=== PATIENT | female | born 1935 | race Caucasian/White ===

== ENCOUNTER 2018-07-05 18:37 | Inpatient (IN) | payer MEDICARE, MEDICAID ==
[~2018-07-05] VITALS: Ht 160 cm; Wt 93.9 kg
[~2018-07-05 18:37] MED LIST: ETOMIDATE 2MG/ML 10ML VIAL IV ONE; SUCCINYLCHOLINE CHLORIDE 200MG/10ML IV ONE
[2018-07-05] MEDS ORDERED: PROPOFOL 10MG/ML 100ML 100 ML IV ONE (18:59)
[2018-07-05] MEDS ORDERED: PROPOFOL 10MG/ML 100ML 100 ML IV SCH (19:00)
[2018-07-05] MEDS ORDERED: NICARDIPINE 40MG/200ML PREMIX 200 ML IV SCH (19:15)
[2018-07-05 19:32] LABS: BASOPHILS % 0.3 % (0.0-2.0); EOSINOPHILS % 0.2 % (0.0-5.0); HEMOGLOBIN. 12.8 g/dL (12.0-16.0); MEAN CORPUSCULAR HEMOGLOBIN 27.4 pg (28.0-32.0); MEAN CORPUSCULAR VOLUME 85.7 fL (81.0-99.0); MEAN PLATELET VOLUME 9.9 fl (7.4-10.4); MONOCYTES % 5.9 % (2.0-8.0); NEUTROPHILS % 67.6 % (40.0-76.0); PLATELET 262 x1000/uL (130-400); RED BLOOD CELL COUNT 4.66 mill/uL (4.2-5.4); RED CELL DISTRIBUTION WIDTH 15.9 % (11.6-14.6)
[2018-07-05 19:38] LABS: CHLORIDE 97 mEq/L (98-107); PROTHROMBIN TIME 10.4 sec (9.1-11.1)
[2018-07-05 19:45] LABS: ETHANOL BLOOD < 10 mg/dL
[2018-07-05] MEDS ORDERED: DEXAMETHASONE 10 MG/ML VIAL IV ONE (19:45)
[2018-07-05] MEDS ORDERED: NICARDIPINE 100 MG in SODIUM CHLORIDE 0.9% 60 ML IV PRN (19:45)
[2018-07-05] MEDS ORDERED: MANNITOL 12.5G (25%) VIAL 50ML IV ONE (19:45)
[2018-07-05] MEDS ORDERED: HUMAN PROTHROMBIN COMPLX (PCC) 500 UNITS VIAL IV NR (20:00)
[2018-07-05 20:17] LABS: CLARITY URINE CLEAR (CLEAR); COLOR URINE YELLOW (YELLOW); KETONES URINE 1+ (NEGATIVE); LEUKOCYTE ESTERASE URINE NEGATIVE (NEGATIVE); NITRITE URINE NEGATIVE (NEGATIVE); OCCULT BLOOD URINE 1+ (NEGATIVE); PROTEIN URINE 1+ (NEGATIVE); SPECIFIC GRAVITY URINE 1.031 (1.005-1.030); UROBILINOGEN URINE 0.2 E.U./dL (0.2-1.0)
[2018-07-05 20:47] LABS: *AMPHETAMINES SCREEN URINE NEGATIVE (NEGATIVE); *BARBITURATES SCREEN URINE NEGATIVE (NEGATIVE); *BENZODIAZEPINES SCREEN URINE NEGATIVE (NEGATIVE); *COCAINE SCREEN URINE NEGATIVE (NEGATIVE); CANNABINOID URINE SCREEN NEGATIVE (NEGATIVE); METHADONE URINE SCREEN NEGATIVE (NEGATIVE); OPIATES URINE SCREEN NEGATIVE (NEGATIVE); PHENCYCLIDINE URINE SCREEN NEGATIVE (NEGATIVE)
[2018-07-05] MEDS ORDERED: LEVETIRACETAM 500MG PREMIX 100 ML IV NR (21:01)
[2018-07-05] MEDS: DEXT 5%/LACTATED RINGERS 1,000 ML IV SCH ×2 (21:05→23:48)
[2018-07-05 21:26] LABS: BG CARBOXYHEMOGLOBIN 0.3 % (0.5-1.5); BG DEOXYHEMOGLOBIN 0.5 % (0.0-5.0); BG FRACTION INSPIRED OXYGEN 100; BG HCO3 ACT 28.5 mmol/L (22.0-26.0); BG METHEMOGLOBIN 0.3 % (0.0-1.5); BG OXYGEN SATURATION 99.5 % (92.0-98.5); BG OXYHEMOGLOBIN 98.9 % (94.0-97.0); BG PCO2 42.4 mmHg (35.0-45.0); BG PH 7.445 (7.350-7.450); BG PO2 478.2 mmHg (75.0-100.0); BG SAMPLE SITE A-LINE; BG TIDAL VOLUME(mL) 450 mL; BG TOTAL HEMOGLOBIN 12.1 g/dL (12.0-18.0); BG VENT MODE VENT - A/C; BG VENT RATE 12 set
[2018-07-05] MEDS ORDERED: ONDANSETRON HCL 4MG/2ML INJ IV PRN (23:00)
[2018-07-05] MEDS ORDERED: ACETAMINOPHEN 650MG SUPP PR PRN (23:00)
[2018-07-05 23:15] VITALS: BP 137/76
[2018-07-05 23:30] VITALS: BP 131/73
[2018-07-05 23:45] VITALS: BP 134/72
[2018-07-05] MEDS: NITROPRUSSIDE 100 MG in SODIUM CHLORIDE 0.9% 246 ML IV PRN (23:49)
[2018-07-06] VITALS (96 sets, daily range): BP systolic 93–147; BP diastolic 50–90
[2018-07-06] MEDS ORDERED: GENTAMICIN 120MG PREMIX 100 ML IV NR
[2018-07-06] MEDS ORDERED: HYDROMORPHONE HCL/PF 2MG/ML CPJ IV PRN (00:30)
[2018-07-06] MEDS: DEXAMETHASONE 4MG/ML 1ML VIAL IV SCH ×4 (02:18→20:34)
[2018-07-06] MEDS: LORAZEPAM 2MG/ML CPJ IV PRN ×2 (04:27→05:52)
[2018-07-06] MEDS ORDERED: LEVETIRACETAM 500 MG in SODIUM CHLORIDE 0.9% 100 ML IV SCH (05:15)
[2018-07-06 05:42] LABS: HEMATOCRIT. 31.5 % (36.0-48.0); HEMOGLOBIN. 10.2 g/dL (12.0-16.0); MEAN CORPUSCULAR HEMOGLOBIN 27.7 pg (28.0-32.0); MEAN CORPUSCULAR VOLUME 85.8 fL (81.0-99.0); PLATELET 204 x1000/uL (130-400); RED BLOOD CELL COUNT 3.67 mill/uL (4.2-5.4); RED CELL DISTRIBUTION WIDTH 15.7 % (11.6-14.6)
[2018-07-06 06:03] LABS: CHLORIDE 99 mEq/L (98-107)
[2018-07-06 07:02] LABS: PLATELET ESTIMATE NORMAL
[2018-07-06 07:52] LABS: BG BASE EXCESS 1.4 mmol/L (-2.0-2.0); BG CARBOXYHEMOGLOBIN 0.3 % (0.5-1.5); BG FRACTION INSPIRED OXYGEN 60; BG METHEMOGLOBIN 0.1 % (0.0-1.5); BG OXYHEMOGLOBIN 98.6 % (94.0-97.0); BG PCO2 41.1 mmHg (35.0-45.0); BG PH 7.419 (7.350-7.450); BG PO2 191.9 mmHg (75.0-100.0); BG SAMPLE SITE RIGHT RADIAL; BG TIDAL VOLUME(mL) 550 mL; BG TOTAL HEMOGLOBIN 10.8 g/dL (12.0-18.0); BG VENT MODE VENT - A/C; BG VENT RATE 12 set
[2018-07-06] MEDS: NITROPRUSSIDE 100 MG in SODIUM CHLORIDE 0.9% 246 ML IV PRN ×2 (08:51→20:59)
[2018-07-06] MEDS: LEVETIRACETAM 750 MG in SODIUM CHLORIDE 0.9% 100 ML IV SCH ×2 (08:51→20:57)
[2018-07-06] MEDS ORDERED: LEVETIRACETAM 500MG PREMIX 100 ML IV SCH (09:00)
[2018-07-06] MEDS ORDERED: DEXTROSE 50% WATER 50ML SYRINGE IV PRN ×2 (09:45)
[2018-07-06] MEDS: BLOOD SUGAR DIAGNOSTIC STRIP TEST SCH ×11 (10:00→22:34)
[2018-07-06] MEDS: INSULIN REGULAR (DRIP) 100 UNITS in SODIUM CHLORIDE 0.9% 100 ML IV SCH ×2 (12:17→20:34)
[2018-07-06] MEDS ORDERED: VANCOMYCIN 1500MG in DEXTROSE 5% WATER 250ML IV SCH (13:00)
[2018-07-06] MEDS ORDERED: HUMAN PROTHROMBIN COMPLX (PCC) 500 UNITS VIAL IV SCH (15:00)
[2018-07-06 16:06] LABS: D-DIMER 5.72 mg/L FEU (<0.50); PROTHROMBIN TIME 9.9 sec (9.1-11.1)
[2018-07-06] MEDS: AZTREONAM 1 G in DEXTROSE 5% WATER 50 ML IV SCH (17:25)
[2018-07-06] MEDS: PANTOPRAZOLE SODIUM 40 MG/VIAL IV SCH (17:25)
[2018-07-06] MEDS: DEXT 5%/LACTATED RINGERS 1,000 ML IV SCH (20:57)
[2018-07-06] MEDS ORDERED: HYDROMORPHONE HCL/PF 2MG/ML CPJ IM PRN (21:00)
[2018-07-07] VITALS (83 sets, daily range): BP systolic 102–149; BP diastolic 55–97
[2018-07-07] MEDS: BLOOD SUGAR DIAGNOSTIC STRIP TEST SCH ×12 (00:17→22:00)
[2018-07-07] MEDS: DEXAMETHASONE 4MG/ML 1ML VIAL IV SCH ×4 (02:09→21:03)
[2018-07-07] MEDS ORDERED: DILT180C3 MT (03:18)
[2018-07-07] MEDS ORDERED: METF-416 MT (03:18)
[2018-07-07] MEDS ORDERED: FERR300S PO (03:18)
[2018-07-07] MEDS ORDERED: GLIM4TAB2 MT (03:18)
[2018-07-07] MEDS ORDERED: DOCU-150 PO (03:18)
[2018-07-07] MEDS ORDERED: RIVA20TA MT (03:18)
[2018-07-07] MEDS ORDERED: PRAV20TA57 MT (03:18)
[2018-07-07] MEDS ORDERED: DIGO125T82 MT (03:18)
[2018-07-07] MEDS ORDERED: GABA-531 PO (03:18)
[2018-07-07] MEDS ORDERED: AMIO100T4 PO (03:18)
[2018-07-07] MEDS: AZTREONAM 1 G in DEXTROSE 5% WATER 50 ML IV SCH ×2 (04:03→16:51)
[2018-07-07 06:06] LABS: HEMATOCRIT. 28.2 % (36.0-48.0); HEMOGLOBIN. 9.3 g/dL (12.0-16.0); MEAN CORPUSCULAR HEMOGLOBIN 28.3 pg (28.0-32.0); MEAN CORPUSCULAR VOLUME 85.6 fL (81.0-99.0); MEAN PLATELET VOLUME 9.6 fl (7.4-10.4); PLATELET 163 x1000/uL (130-400); RED BLOOD CELL COUNT 3.29 mill/uL (4.2-5.4); RED CELL DISTRIBUTION WIDTH 15.5 % (11.6-14.6)
[2018-07-07 08:38] LABS: PLATELET ESTIMATE NORMAL
[2018-07-07] MEDS: PANTOPRAZOLE SODIUM 40 MG/VIAL IV SCH (08:55)
[2018-07-07] MEDS: LEVETIRACETAM 750 MG in SODIUM CHLORIDE 0.9% 100 ML IV SCH (08:55)
[2018-07-07] MEDS ORDERED: GELATIN SPONGE,ABSORBABLE 12-7MM SPONGE ONE ×3 (08:56→10:26)
[2018-07-07] MEDS ORDERED: THROMBIN (BOVINE) 5000 UNITS/VIAL TOP ONE ×2 (08:56→10:26)
[2018-07-07] MEDS ORDERED: BACITRACIN 15GM TUBE TOP ONE (08:56)
[2018-07-07] MEDS ORDERED: LIDOCAINE HCL/EPINEPHRINE 1%-EPI 1:100,000 20 ML VIAL ONE (08:57)
[2018-07-07] MEDS ORDERED: BACITRACIN 50,000 UNITS/VIAL ONE (08:57)
[2018-07-07] MEDS ORDERED: AMIODARONE HCL 900 MG in DEXT 5% WATER 482 ML IV SCH (09:10)
[2018-07-07] MEDS ORDERED: DIGOXIN 500MCG/2ML AMP IV NR (09:15)
[2018-07-07] MEDS ORDERED: DIGOXIN 500MCG/2ML AMP ONE (09:24)
[2018-07-07] MEDS ORDERED: FENTANYL CITRATE/PF 50MCG/ML 2ML VIAL ONE ×2 (09:33→10:37)
[2018-07-07] MEDS ORDERED: LEVETIRACETAM 500 MG in SODIUM CHLORIDE 0.9% 100 ML IV NR (10:15)
[2018-07-07 10:29] LABS: LDL CHOLESTEROL 54 mg/dL (5-100)
[2018-07-07 10:32] LABS: HDL CHOLESTEROL 26 mg/dL (40-59); T4 FREE 1.59 ng/dL (0.76-1.46)
[2018-07-07] MEDS: VANCOMYCIN 1 G PREMIX 200 ML IV SCH (13:11)
[2018-07-07] MEDS: NITROPRUSSIDE 100 MG in SODIUM CHLORIDE 0.9% 246 ML IV PRN ×2 (14:54→20:03)
[2018-07-07] MEDS: INSULIN REGULAR (DRIP) 100 UNITS in SODIUM CHLORIDE 0.9% 100 ML IV SCH (14:55)
[2018-07-07] MEDS: DEXT 5%/LACTATED RINGERS 1,000 ML IV SCH (17:08)
[2018-07-07 17:50] LABS: HEMATOCRIT 24.8 % (36.0-48.0); HEMOGLOBIN 8.2 g/dL (12.0-16.0)
[2018-07-07 18:21] LABS: D-DIMER 5.82 mg/L FEU (<0.50); PARTIAL THROMBOPLASTIN TIME 23.1 sec (23.4-31.0); PROTHROMBIN TIME 9.9 sec (9.1-11.1)
[2018-07-07 18:22] LABS: CREATINE KINASE MB FRACTION 1.5 ng/mL (0.5-3.6)
[2018-07-07] MEDS: HYDROMORPHONE HCL/PF 2MG/ML CPJ IV PRN (18:52)
[2018-07-07] MEDS: LEVETIRACETAM 1,000 MG in SODIUM CHLORIDE 0.9% 100 ML IV SCH (21:05)
[2018-07-08] VITALS (89 sets, daily range): BP systolic 108–151; BP diastolic 50–90
[2018-07-08] MEDS: NITROPRUSSIDE 100 MG in SODIUM CHLORIDE 0.9% 246 ML IV PRN ×4 (01:06→13:17)
[2018-07-08] MEDS: HYDROMORPHONE HCL/PF 2MG/ML CPJ IV PRN (01:59)
[2018-07-08] MEDS: BLOOD SUGAR DIAGNOSTIC STRIP TEST SCH ×8 (02:00→20:36)
[2018-07-08 02:08] LABS: CREATINE KINASE MB FRACTION 1.3 ng/mL (0.5-3.6)
[2018-07-08] MEDS: DEXAMETHASONE 4MG/ML 1ML VIAL IV SCH ×4 (03:08→22:51)
[2018-07-08] MEDS: AZTREONAM 1 G in DEXTROSE 5% WATER 50 ML IV SCH ×2 (04:11→17:38)
[2018-07-08 05:42] LABS: HEMATOCRIT. 24.7 % (36.0-48.0); HEMOGLOBIN. 8.1 g/dL (12.0-16.0); MEAN CORPUSCULAR HEMOGLOBIN 28.1 pg (28.0-32.0); MEAN CORPUSCULAR VOLUME 86.1 fL (81.0-99.0); MEAN PLATELET VOLUME 9.4 fl (7.4-10.4); PLATELET 239 x1000/uL (130-400); RED BLOOD CELL COUNT 2.87 mill/uL (4.2-5.4); RED CELL DISTRIBUTION WIDTH 15.8 % (11.6-14.6)
[2018-07-08 05:43] LABS: CHLORIDE 109 mEq/L (98-107)
[2018-07-08 05:53] LABS: CREATINE KINASE 322 IU/L (26-192)
[2018-07-08 06:12] LABS: CREATINE KINASE MB FRACTION < 1.0 ng/mL (0.5-3.6)
[2018-07-08] MEDS: PANTOPRAZOLE SODIUM 40 MG/VIAL IV SCH (08:37)
[2018-07-08] MEDS: LEVETIRACETAM 1,000 MG in SODIUM CHLORIDE 0.9% 100 ML IV SCH ×2 (08:37→21:19)
[2018-07-08] MEDS: INSULIN REGULAR (DRIP) 100 UNITS in SODIUM CHLORIDE 0.9% 100 ML IV SCH (08:40)
[2018-07-08 10:08] LABS: PLATELET ESTIMATE NORMAL
[2018-07-08 11:01] LABS: BG BASE EXCESS -0.3 mmol/L (-2.0-2.0); BG CARBOXYHEMOGLOBIN 0.3 % (0.5-1.5); BG DEOXYHEMOGLOBIN 2.3 % (0.0-5.0); BG HCO3 ACT 23.2 mmol/L (22.0-26.0); BG METHEMOGLOBIN 0.1 % (0.0-1.5); BG OXYGEN SATURATION 97.7 % (92.0-98.5); BG OXYHEMOGLOBIN 97.3 % (94.0-97.0); BG PCO2 32.7 mmHg (35.0-45.0); BG PH 7.468 (7.350-7.450); BG PO2 167.3 mmHg (75.0-100.0); BG SAMPLE SITE RIGHT RADIAL; BG TIDAL VOLUME(mL) 450 mL; BG TOTAL HEMOGLOBIN 8.5 g/dL (12.0-18.0); BG VENT MODE VENT - A/C; BG VENT RATE 12 set
[2018-07-08] MEDS: DEXT 5%/LACTATED RINGERS 1,000 ML IV SCH (13:23)
[2018-07-08] MEDS: INSULIN GLARGINE UD 100 UNITS/ML SYR SUBCUT SCH (13:36)
[2018-07-08] MEDS: VANCOMYCIN 1 G PREMIX 200 ML IV SCH (13:38)
[2018-07-08] MEDS ORDERED: DEXTROSE 50% WATER 50ML SYRINGE IV PRN (14:00)
[2018-07-08] MEDS: INSULIN LISPRO 100 UNITS/ML SUBCUT SCH ×2 (17:37→21:20)
[2018-07-08 18:33] LABS: HEMATOCRIT 24.1 % (36.0-48.0); HEMOGLOBIN 7.9 g/dL (12.0-16.0); MEAN CORPUSCULAR HEMOGLOBIN 28.3 pg (28.0-32.0); MEAN CORPUSCULAR VOLUME 86.4 fL (81.0-99.0); PLATELET 209 x1000/uL (130-400); RED BLOOD CELL COUNT 2.79 mill/uL (4.2-5.4); RED CELL DISTRIBUTION WIDTH 16.2 % (11.6-14.6)
[2018-07-08] MEDS: NICARDIPINE 100 MG in SODIUM CHLORIDE 0.9% 60 ML IV PRN (21:24)
[2018-07-09] VITALS (92 sets, daily range): BP systolic 114–159; BP diastolic 53–94
[2018-07-09] MEDS: HYDROMORPHONE HCL/PF 2MG/ML CPJ IV PRN (00:52)
[2018-07-09] MEDS: LABETALOL HCL 20MG/4ML CARPUJECT IV PRN ×2 (01:22→06:17)
[2018-07-09] MEDS: NICARDIPINE 100 MG in SODIUM CHLORIDE 0.9% 60 ML IV PRN ×4 (03:34→23:48)
[2018-07-09] MEDS: DEXAMETHASONE 4MG/ML 1ML VIAL IV SCH ×4 (03:45→21:30)
[2018-07-09] MEDS: AZTREONAM 1 G in DEXTROSE 5% WATER 50 ML IV SCH ×3 (03:45→23:48)
[2018-07-09 05:56] LABS: HEMATOCRIT. 27.5 % (36.0-48.0); HEMOGLOBIN. 9.1 g/dL (12.0-16.0); MEAN CORPUSCULAR HEMOGLOBIN 28.6 pg (28.0-32.0); MEAN CORPUSCULAR VOLUME 86.7 fL (81.0-99.0); MEAN PLATELET VOLUME 9.7 fl (7.4-10.4); PLATELET 209 x1000/uL (130-400); RED BLOOD CELL COUNT 3.17 mill/uL (4.2-5.4); RED CELL DISTRIBUTION WIDTH 16.1 % (11.6-14.6)
[2018-07-09 06:09] LABS: CHLORIDE 110 mEq/L (98-107)
[2018-07-09] MEDS: BLOOD SUGAR DIAGNOSTIC STRIP TEST SCH ×4 (06:10→23:41)
[2018-07-09] MEDS: INSULIN LISPRO 100 UNITS/ML SUBCUT SCH ×3 (06:17→23:49)
[2018-07-09 07:19] LABS: PLATELET ESTIMATE NORMAL
[2018-07-09] MEDS: LEVETIRACETAM 1,000 MG in SODIUM CHLORIDE 0.9% 100 ML IV SCH ×2 (09:15→21:30)
[2018-07-09] MEDS: PANTOPRAZOLE SODIUM 40 MG/VIAL IV SCH (09:16)
[2018-07-09] MEDS: INSULIN GLARGINE UD 100 UNITS/ML SYR SUBCUT SCH (10:39)
[2018-07-09] MEDS: HYDRALAZINE HCL 50MG TABLET NG SCH ×2 (14:20→21:30)
[2018-07-09] MEDS: VANCOMYCIN 1250MG in DEXTROSE 5% WATER 250ML IV SCH (14:20)
[2018-07-09] MEDS: DEXT 5%/LACTATED RINGERS 1,000 ML IV SCH ×2 (17:44→22:01)
[2018-07-09] MEDS ORDERED: INSULIN LISPRO 100 UNITS/ML SUBCUT NR (18:13)
[2018-07-09] MEDS: ACETAMINOPHEN 650MG/20.3ML UDC PO PRN (18:29)
[2018-07-09] MEDS ORDERED: INSULIN GLARGINE UD 100 UNITS/ML SYR SUBCUT NR (20:00)
[2018-07-09] MEDS ORDERED: DIGOXIN 500MCG/2ML AMP IV NR (20:30)
[2018-07-09] MEDS ORDERED: SODIUM CHLORIDE 0.9% 250 ML IV NR (20:30)
[2018-07-10] VITALS (91 sets, daily range): BP systolic 108–158; BP diastolic 55–74
[2018-07-10] MEDS: DEXAMETHASONE 4MG/ML 1ML VIAL IV SCH ×3 (02:41→16:47)
[2018-07-10] MEDS: BLOOD SUGAR DIAGNOSTIC STRIP TEST SCH ×4 (05:55→23:15)
[2018-07-10 05:57] LABS: HEMATOCRIT. 30.4 % (36.0-48.0); MEAN CORPUSCULAR HEMOGLOBIN 28.3 pg (28.0-32.0); MEAN CORPUSCULAR VOLUME 86.5 fL (81.0-99.0); MEAN PLATELET VOLUME 9.3 fl (7.4-10.4); PLATELET 272 x1000/uL (130-400); RED BLOOD CELL COUNT 3.52 mill/uL (4.2-5.4); RED CELL DISTRIBUTION WIDTH 16.1 % (11.6-14.6)
[2018-07-10] MEDS: HYDRALAZINE HCL 50MG TABLET NG SCH ×3 (05:59→21:06)
[2018-07-10] MEDS: INSULIN LISPRO 100 UNITS/ML SUBCUT SCH ×4 (05:59→23:25)
[2018-07-10] MEDS: AZTREONAM 1 G in DEXTROSE 5% WATER 50 ML IV SCH ×3 (05:59→23:24)
[2018-07-10] MEDS: NICARDIPINE 100 MG in SODIUM CHLORIDE 0.9% 60 ML IV PRN (06:18)
[2018-07-10 08:33] LABS: PLATELET ESTIMATE NORMAL
[2018-07-10] MEDS: VANCOMYCIN 1250MG in DEXTROSE 5% WATER 250ML IV SCH (08:48)
[2018-07-10] MEDS: PANTOPRAZOLE SODIUM 40 MG/VIAL IV SCH (08:48)
[2018-07-10] MEDS: LEVETIRACETAM 1,000 MG in SODIUM CHLORIDE 0.9% 100 ML IV SCH ×2 (08:54→20:31)
[2018-07-10] MEDS ORDERED: AMIODARONE HCL 900 MG in DEXT 5% WATER 482 ML IV SCH (09:30)
[2018-07-10] MEDS ORDERED: INSULIN GLARGINE UD 100 UNITS/ML SYR SUBCUT SCH (10:00)
[2018-07-10] MEDS ORDERED: INSULIN LISPRO 100 UNITS/ML SUBCUT NR ×2 (13:45→13:51)
[2018-07-10 18:04] LABS: PARTIAL THROMBOPLASTIN TIME 21.2 sec (23.4-31.0)
[2018-07-10] MEDS: ACETAMINOPHEN 650MG/20.3ML UDC PO PRN (20:31)
[2018-07-11] VITALS (87 sets, daily range): BP systolic 103–161; BP diastolic 54–82
[2018-07-11] MEDS: VANCOMYCIN 1250MG in DEXTROSE 5% WATER 250ML IV SCH ×2 (01:16→20:35)
[2018-07-11] MEDS: NICARDIPINE 100 MG in SODIUM CHLORIDE 0.9% 60 ML IV PRN (01:16)
[2018-07-11] MEDS: BLOOD SUGAR DIAGNOSTIC STRIP TEST SCH ×4 (05:07→23:28)
[2018-07-11] MEDS: HYDRALAZINE HCL 50MG TABLET NG SCH ×3 (05:07→22:00)
[2018-07-11 05:25] LABS: HEMATOCRIT. 28.7 % (36.0-48.0); HEMOGLOBIN. 9.4 g/dL (12.0-16.0); MEAN CORPUSCULAR HEMOGLOBIN 28.5 pg (28.0-32.0); MEAN CORPUSCULAR VOLUME 86.8 fL (81.0-99.0); MEAN PLATELET VOLUME 9.3 fl (7.4-10.4); PLATELET 253 x1000/uL (130-400); RED CELL DISTRIBUTION WIDTH 16.3 % (11.6-14.6)
[2018-07-11] MEDS: AZTREONAM 1 G in DEXTROSE 5% WATER 50 ML IV SCH ×3 (06:40→22:12)
[2018-07-11] MEDS: INSULIN LISPRO 100 UNITS/ML SUBCUT SCH ×4 (06:40→23:29)
[2018-07-11] MEDS ORDERED: DIGOXIN 500MCG/2ML AMP IV SCH (08:30)
[2018-07-11] MEDS: LEVETIRACETAM 1,000 MG in SODIUM CHLORIDE 0.9% 100 ML IV SCH ×2 (08:33→22:13)
[2018-07-11] MEDS: PANTOPRAZOLE SODIUM 40 MG/VIAL IV SCH (08:33)
[2018-07-11] MEDS: DEXAMETHASONE 4MG/ML 1ML VIAL IV SCH ×2 (08:33→18:18)
[2018-07-11] MEDS ORDERED: AMIODARONE HCL 900 MG in DEXT 5% WATER 482 ML IV SCH (09:00)
[2018-07-11] MEDS: INSULIN GLARGINE UD 100 UNITS/ML SYR SUBCUT SCH (09:10)
[2018-07-11 09:28] LABS: PLATELET ESTIMATE NORMAL
[2018-07-11 10:10] LABS: PARTIAL THROMBOPLASTIN TIME 21.5 sec (23.4-31.0)
[2018-07-11] MEDS: AMIODARONE HCL 900 MG in DEXT 5% WATER 500 ML IV PRN (12:17)
[2018-07-11] MEDS ORDERED: FENTANYL CITRATE/PF 50MCG/ML 2ML VIAL ONE (17:10)
[2018-07-11] MEDS ORDERED: ROCURONIUM BROMIDE 10MG/ML VIAL 5ML IV ONE ×2 (17:17→17:41)
[2018-07-11] MEDS ORDERED: MIDAZOLAM HCL 2 MG/2 ML VIAL ONE (17:24)
[2018-07-12] VITALS (80 sets, daily range): BP systolic 111–167; BP diastolic 40–98
[2018-07-12] MEDS: NICARDIPINE 100 MG in SODIUM CHLORIDE 0.9% 60 ML IV PRN ×2 (01:50→11:39)
[2018-07-12] MEDS: BLOOD SUGAR DIAGNOSTIC STRIP TEST SCH ×4 (06:09→23:15)
[2018-07-12] MEDS: AZTREONAM 1 G in DEXTROSE 5% WATER 50 ML IV SCH ×3 (06:15→23:19)
[2018-07-12] MEDS: INSULIN LISPRO 100 UNITS/ML SUBCUT SCH ×4 (06:16→23:19)
[2018-07-12] MEDS: HYDRALAZINE HCL 50MG TABLET NG SCH ×3 (06:28→21:05)
[2018-07-12 07:13] LABS: HEMATOCRIT. 26.5 % (36.0-48.0); HEMOGLOBIN. 8.6 g/dL (12.0-16.0); MEAN CORPUSCULAR HEMOGLOBIN 28.3 pg (28.0-32.0); MEAN CORPUSCULAR VOLUME 87.4 fL (81.0-99.0); MEAN PLATELET VOLUME 9.5 fl (7.4-10.4); PLATELET 235 x1000/uL (130-400); RED BLOOD CELL COUNT 3.04 mill/uL (4.2-5.4); RED CELL DISTRIBUTION WIDTH 15.9 % (11.6-14.6)
[2018-07-12 07:35] LABS: PARTIAL THROMBOPLASTIN TIME 20.3 sec (23.4-31.0)
[2018-07-12 07:43] LABS: PHOSPHORUS 3.8 mg/dL (2.5-4.9); PLATELET ESTIMATE NORMAL
[2018-07-12] MEDS: PANTOPRAZOLE SODIUM 40 MG/VIAL IV SCH (08:28)
[2018-07-12] MEDS: DEXAMETHASONE 4MG/ML 1ML VIAL IV SCH ×2 (08:28→17:39)
[2018-07-12] MEDS: LEVETIRACETAM 1,000 MG in SODIUM CHLORIDE 0.9% 100 ML IV SCH ×2 (08:47→21:05)
[2018-07-12] MEDS: INSULIN GLARGINE UD 100 UNITS/ML SYR SUBCUT SCH (08:48)
[2018-07-12] MEDS ORDERED: FUROSEMIDE 20MG/2ML VIAL IVP NR (11:30)
[2018-07-12] MEDS: AMLODIPINE 5MG TABLET PO SCH ×2 (11:37→21:05)
[2018-07-12] MEDS: AMIODARONE HCL 900 MG in DEXT 5% WATER 500 ML IV PRN (17:40)
[2018-07-12] MEDS: VANCOMYCIN 1250MG in DEXTROSE 5% WATER 250ML IV SCH (22:16)
[2018-07-13] VITALS (88 sets, daily range): BP systolic 100–151; BP diastolic 57–108
[2018-07-13 05:47] LABS: HEMATOCRIT. 27.9 % (36.0-48.0); HEMOGLOBIN. 9.1 g/dL (12.0-16.0); MEAN CORPUSCULAR HEMOGLOBIN 28.7 pg (28.0-32.0); MEAN CORPUSCULAR VOLUME 87.9 fL (81.0-99.0); MEAN PLATELET VOLUME 9.3 fl (7.4-10.4); PLATELET 223 x1000/uL (130-400); RED BLOOD CELL COUNT 3.17 mill/uL (4.2-5.4); RED CELL DISTRIBUTION WIDTH 16.1 % (11.6-14.6)
[2018-07-13 05:54] LABS: PARTIAL THROMBOPLASTIN TIME 20.1 sec (23.4-31.0)
[2018-07-13] MEDS: INSULIN LISPRO 100 UNITS/ML SUBCUT SCH ×4 (06:00→23:30)
[2018-07-13] MEDS: HYDRALAZINE HCL 50MG TABLET NG SCH ×3 (06:00→22:50)
[2018-07-13 06:05] LABS: CHLORIDE 118 mEq/L (98-107)
[2018-07-13] MEDS: BLOOD SUGAR DIAGNOSTIC STRIP TEST SCH ×4 (06:24→23:26)
[2018-07-13] MEDS: AZTREONAM 1 G in DEXTROSE 5% WATER 50 ML IV SCH ×3 (06:27→23:30)
[2018-07-13 06:48] LABS: PLATELET ESTIMATE NORMAL
[2018-07-13] MEDS ORDERED: SODIUM POLYSTYRENE SULFONATE 15 G/60 ML BOT PO NR (07:15)
[2018-07-13 07:28] LABS: BG BASE EXCESS 3.2 mmol/L (-2.0-2.0); BG CARBOXYHEMOGLOBIN 0.3 % (0.5-1.5); BG DEOXYHEMOGLOBIN 1.4 % (0.0-5.0); BG HCO3 ACT 26.9 mmol/L (22.0-26.0); BG METHEMOGLOBIN 0.2 % (0.0-1.5); BG OXYGEN SATURATION 98.6 % (92.0-98.5); BG OXYHEMOGLOBIN 98.1 % (94.0-97.0); BG PH 7.479 (7.350-7.450); BG PO2 150.1 mmHg (75.0-100.0); BG SAMPLE SITE RIGHT RADIAL; BG TIDAL VOLUME(mL) 450 mL; BG TOTAL HEMOGLOBIN 9.3 g/dL (12.0-18.0); BG VENT MODE VENT - A/C; BG VENT RATE 12 set
[2018-07-13] MEDS: LEVETIRACETAM 1,000 MG in SODIUM CHLORIDE 0.9% 100 ML IV SCH (08:59)
[2018-07-13] MEDS: AMLODIPINE 5MG TABLET PO SCH ×2 (09:00→21:05)
[2018-07-13] MEDS: DEXTROSE 5% WATER 1,000 ML IV SCH (09:01)
[2018-07-13] MEDS: PANTOPRAZOLE SODIUM 40 MG/VIAL IV SCH (09:09)
[2018-07-13] MEDS: DEXAMETHASONE 4MG/ML 1ML VIAL IV SCH (09:09)
[2018-07-13] MEDS: INSULIN GLARGINE UD 100 UNITS/ML SYR SUBCUT SCH ×2 (09:11→21:06)
[2018-07-13] MEDS ORDERED: MIDAZOLAM HCL 5 MG/5 ML VIAL ONE (12:53)
[2018-07-13] MEDS ORDERED: FENTANYL CITRATE/PF 50MCG/ML 2ML VIAL ONE (12:53)
[2018-07-13] MEDS: AMIODARONE HCL 200 MG TABLET PO SCH (18:16)
[2018-07-13] MEDS: LEVETIRACETAM 500MG/5ML CUP PO SCH (21:04)
[2018-07-13] MEDS: VANCOMYCIN 1250MG in DEXTROSE 5% WATER 250ML IV SCH (22:47)
[2018-07-14] VITALS (83 sets, daily range): BP systolic 115–157; BP diastolic 61–96
[2018-07-14] MEDS: BLOOD SUGAR DIAGNOSTIC STRIP TEST SCH ×3 (05:25→17:48)
[2018-07-14] MEDS: HYDRALAZINE HCL 50MG TABLET NG SCH ×3 (05:30→21:10)
[2018-07-14] MEDS: INSULIN LISPRO 100 UNITS/ML SUBCUT SCH ×3 (05:31→17:48)
[2018-07-14] MEDS: DEXTROSE 5% WATER 1,000 ML IV SCH ×3 (05:32→21:32)
[2018-07-14 05:51] LABS: CHLORIDE 117 mEq/L (98-107)
[2018-07-14] MEDS: AZTREONAM 1 G in DEXTROSE 5% WATER 50 ML IV SCH ×3 (08:12→23:57)
[2018-07-14] MEDS: DEXAMETHASONE 4MG/ML 1ML VIAL IV SCH ×2 (08:48→17:32)
[2018-07-14] MEDS: AMIODARONE HCL 200 MG TABLET PO SCH (08:48)
[2018-07-14] MEDS: PANTOPRAZOLE SODIUM 40 MG/VIAL IV SCH (08:48)
[2018-07-14] MEDS: AMLODIPINE 5MG TABLET PO SCH ×2 (08:48→21:10)
[2018-07-14] MEDS: LEVETIRACETAM 500MG/5ML CUP PO SCH ×2 (08:48→21:50)
[2018-07-14] MEDS: INSULIN GLARGINE UD 100 UNITS/ML SYR SUBCUT SCH ×2 (08:49→21:15)
[2018-07-14 09:32] LABS: BASOPHILS % 0.3 % (0.0-2.0); EOSINOPHILS % 0.1 % (0.0-5.0); HEMOGLOBIN. 9.4 g/dL (12.0-16.0); LYMPHOCYTES % 7.7 % (20.0-50.0); MEAN CORPUSCULAR HEMOGLOBIN 28.5 pg (28.0-32.0); MEAN CORPUSCULAR VOLUME 87.5 fL (81.0-99.0); MEAN PLATELET VOLUME 9.7 fl (7.4-10.4); MONOCYTES % 6.8 % (2.0-8.0); NEUTROPHILS % 85.1 % (40.0-76.0); PLATELET 213 x1000/uL (130-400); RED BLOOD CELL COUNT 3.31 mill/uL (4.2-5.4); RED CELL DISTRIBUTION WIDTH 15.8 % (11.6-14.6)
[2018-07-14] MEDS: AMIODARONE HCL 900 MG in DEXT 5% WATER 482 ML IV PRN (11:07)
[2018-07-14] MEDS: NICARDIPINE 100 MG in SODIUM CHLORIDE 0.9% 60 ML IV PRN (11:12)
[2018-07-15] VITALS (88 sets, daily range): BP systolic 107–153; BP diastolic 60–89
[2018-07-15] MEDS: BLOOD SUGAR DIAGNOSTIC STRIP TEST SCH ×5 (00:06→23:33)
[2018-07-15] MEDS: INSULIN LISPRO 100 UNITS/ML SUBCUT SCH ×5 (00:11→23:34)
[2018-07-15 05:26] LABS: HEMATOCRIT. 26.9 % (36.0-48.0); HEMOGLOBIN. 8.8 g/dL (12.0-16.0); MEAN CORPUSCULAR HEMOGLOBIN 28.6 pg (28.0-32.0); MEAN CORPUSCULAR VOLUME 87.2 fL (81.0-99.0); MEAN PLATELET VOLUME 9.9 fl (7.4-10.4); PLATELET 199 x1000/uL (130-400); RED BLOOD CELL COUNT 3.09 mill/uL (4.2-5.4); RED CELL DISTRIBUTION WIDTH 15.5 % (11.6-14.6)
[2018-07-15 05:32] LABS: CHLORIDE 110 mEq/L (98-107)
[2018-07-15] MEDS: HYDRALAZINE HCL 50MG TABLET NG SCH ×3 (05:41→21:24)
[2018-07-15] MEDS: AZTREONAM 1 G in DEXTROSE 5% WATER 50 ML IV SCH ×3 (06:48→23:33)
[2018-07-15 08:02] LABS: PLATELET ESTIMATE NORMAL
[2018-07-15] MEDS: PANTOPRAZOLE SODIUM 40 MG/VIAL IV SCH (08:02)
[2018-07-15] MEDS: LEVETIRACETAM 500MG/5ML CUP PO SCH ×2 (08:02→21:24)
[2018-07-15] MEDS: DEXAMETHASONE 4MG/ML 1ML VIAL IV SCH (08:03)
[2018-07-15] MEDS: AMLODIPINE 5MG TABLET PO SCH ×2 (08:03→21:24)
[2018-07-15] MEDS: INSULIN GLARGINE UD 100 UNITS/ML SYR SUBCUT SCH ×2 (10:14→21:25)
[2018-07-15] MEDS: VANCOMYCIN 1250MG in DEXTROSE 5% WATER 250ML IV SCH (10:14)
[2018-07-15] MEDS: DEXTROSE 5% WATER 1,000 ML IV SCH (17:56)
[2018-07-15] MEDS: NICARDIPINE 100 MG in SODIUM CHLORIDE 0.9% 60 ML IV PRN ×2 (18:06→18:09)
[2018-07-15] MEDS: AMIODARONE HCL 900 MG in DEXT 5% WATER 482 ML IV PRN ×2 (18:07→18:10)
[2018-07-15] MEDS ORDERED: VANCOMYCIN 1250MG in DEXTROSE 5% WATER 250ML IV SCH (22:00)
[2018-07-16] VITALS (65 sets, daily range): BP systolic 108–157; BP diastolic 49–102
[2018-07-16] MEDS: BLOOD SUGAR DIAGNOSTIC STRIP TEST SCH ×3 (06:07→18:04)
[2018-07-16] MEDS: AZTREONAM 1 G in DEXTROSE 5% WATER 50 ML IV SCH ×3 (06:18→22:08)
[2018-07-16] MEDS: HYDRALAZINE HCL 50MG TABLET NG SCH ×4 (06:18→22:07)
[2018-07-16] MEDS: INSULIN LISPRO 100 UNITS/ML SUBCUT SCH ×3 (06:19→18:01)
[2018-07-16 06:21] LABS: HEMATOCRIT. 26.1 % (36.0-48.0); HEMOGLOBIN. 8.6 g/dL (12.0-16.0); MEAN CORPUSCULAR HEMOGLOBIN 28.5 pg (28.0-32.0); MEAN CORPUSCULAR VOLUME 86.7 fL (81.0-99.0); MEAN PLATELET VOLUME 10.2 fl (7.4-10.4); PLATELET 180 x1000/uL (130-400); RED BLOOD CELL COUNT 3.01 mill/uL (4.2-5.4); RED CELL DISTRIBUTION WIDTH 15.2 % (11.6-14.6)
[2018-07-16 06:26] LABS: CHLORIDE 104 mEq/L (98-107)
[2018-07-16 08:05] LABS: PLATELET ESTIMATE NORMAL
[2018-07-16 08:30] LABS: BG BASE EXCESS 2.9 mmol/L (-2.0-2.0); BG CARBOXYHEMOGLOBIN 0.4 % (0.5-1.5); BG FRACTION INSPIRED OXYGEN 40; BG HCO3 ACT 26.3 mmol/L (22.0-26.0); BG METHEMOGLOBIN 0.1 % (0.0-1.5); BG OXYHEMOGLOBIN 98.5 % (94.0-97.0); BG PCO2 35.5 mmHg (35.0-45.0); BG PH 7.487 (7.350-7.450); BG PO2 156.2 mmHg (75.0-100.0); BG SAMPLE SITE RIGHT RADIAL; BG TIDAL VOLUME(mL) 450 mL; BG TOTAL HEMOGLOBIN 9.9 g/dL (12.0-18.0); BG VENT MODE VENT - A/C; BG VENT RATE 12 set
[2018-07-16] MEDS: AMLODIPINE 5MG TABLET PO SCH ×2 (10:09→22:06)
[2018-07-16] MEDS: LABETALOL HCL 20MG/4ML CARPUJECT IV PRN (10:09)
[2018-07-16] MEDS: LEVETIRACETAM 500MG/5ML CUP PO SCH ×2 (10:09→21:59)
[2018-07-16] MEDS: PANTOPRAZOLE SODIUM 40 MG/VIAL IV SCH (10:10)
[2018-07-16] MEDS: INSULIN GLARGINE UD 100 UNITS/ML SYR SUBCUT SCH ×2 (10:21→22:05)
[2018-07-16] MEDS: VANCOMYCIN 1250MG in DEXTROSE 5% WATER 250ML IV SCH (10:57)
[2018-07-16] MEDS: METOPROLOL TARTRATE 25MG TABLET PO SCH (22:00)
[2018-07-17] VITALS (48 sets, daily range): BP systolic 98–147; BP diastolic 54–78
[2018-07-17 05:39] LABS: BASOPHILS % 0.2 % (0.0-2.0); HEMATOCRIT. 25.9 % (36.0-48.0); HEMOGLOBIN. 8.4 g/dL (12.0-16.0); LYMPHOCYTES % 10.5 % (20.0-50.0); MEAN CORPUSCULAR HEMOGLOBIN 28.6 pg (28.0-32.0); MEAN CORPUSCULAR VOLUME 87.6 fL (81.0-99.0); MEAN PLATELET VOLUME 10.6 fl (7.4-10.4); MONOCYTES % 6.1 % (2.0-8.0); NEUTROPHILS % 81.2 % (40.0-76.0); PLATELET 162 x1000/uL (130-400); RED BLOOD CELL COUNT 2.95 mill/uL (4.2-5.4)
[2018-07-17 05:43] LABS: CHLORIDE 107 mEq/L (98-107)
[2018-07-17] MEDS: BLOOD SUGAR DIAGNOSTIC STRIP TEST SCH ×5 (07:00→23:18)
[2018-07-17] MEDS: INSULIN LISPRO 100 UNITS/ML SUBCUT SCH ×5 (07:15→23:19)
[2018-07-17] MEDS: AMLODIPINE 5MG TABLET PO SCH ×2 (09:11→20:50)
[2018-07-17] MEDS: PANTOPRAZOLE SODIUM 40 MG/VIAL IV SCH (09:11)
[2018-07-17] MEDS: LEVETIRACETAM 500MG/5ML CUP PO SCH ×2 (09:11→20:49)
[2018-07-17] MEDS: METOPROLOL TARTRATE 25MG TABLET PO SCH ×2 (09:12→20:50)
[2018-07-17] MEDS: INSULIN GLARGINE UD 100 UNITS/ML SYR SUBCUT SCH ×2 (10:54→23:22)
[2018-07-17] MEDS: AMIODARONE HCL 200 MG TABLET PO SCH (12:59)
[2018-07-17] MEDS: HYDRALAZINE HCL 50MG TABLET NG SCH ×2 (14:23→21:36)
[2018-07-18] VITALS (27 sets, daily range): BP systolic 118–143; BP diastolic 60–86
[2018-07-18] MEDS: INSULIN LISPRO 100 UNITS/ML SUBCUT SCH ×3 (05:14→18:00)
[2018-07-18] MEDS: BLOOD SUGAR DIAGNOSTIC STRIP TEST SCH ×3 (05:14→17:31)
[2018-07-18] MEDS: HYDRALAZINE HCL 50MG TABLET NG SCH ×3 (05:25→22:19)
[2018-07-18 06:42] LABS: BASOPHILS % 0.3 % (0.0-2.0); EOSINOPHILS % 1.2 % (0.0-5.0); HEMATOCRIT. 28.8 % (36.0-48.0); HEMOGLOBIN. 9.4 g/dL (12.0-16.0); LYMPHOCYTES % 10.2 % (20.0-50.0); MEAN CORPUSCULAR HEMOGLOBIN 28.5 pg (28.0-32.0); MEAN CORPUSCULAR VOLUME 87.6 fL (81.0-99.0); MEAN PLATELET VOLUME 10.8 fl (7.4-10.4); MONOCYTES % 5.6 % (2.0-8.0); NEUTROPHILS % 82.7 % (40.0-76.0); PLATELET 182 x1000/uL (130-400); RED BLOOD CELL COUNT 3.29 mill/uL (4.2-5.4); RED CELL DISTRIBUTION WIDTH 15.2 % (11.6-14.6)
[2018-07-18 06:58] LABS: CHLORIDE 104 mEq/L (98-107)
[2018-07-18] MEDS: INSULIN GLARGINE UD 100 UNITS/ML SYR SUBCUT SCH ×2 (10:00→22:00)
[2018-07-18] MEDS: AMIODARONE HCL 200 MG TABLET PO SCH (10:26)
[2018-07-18] MEDS: PANTOPRAZOLE SODIUM 40 MG/VIAL IV SCH (10:26)
[2018-07-18] MEDS: LEVETIRACETAM 500MG/5ML CUP PO SCH ×2 (10:26→22:18)
[2018-07-18] MEDS: METOPROLOL TARTRATE 25MG TABLET PO SCH ×2 (10:27→22:20)
[2018-07-18] MEDS: AMLODIPINE 5MG TABLET PO SCH ×2 (10:27→22:19)
[2018-07-19] VITALS (15 sets, daily range): BP systolic 107–141; BP diastolic 58–75
[2018-07-19] MEDS: INSULIN LISPRO 100 UNITS/ML SUBCUT SCH ×5 (06:00→23:31)
[2018-07-19 06:05] LABS: CHLORIDE 106 mEq/L (98-107)
[2018-07-19 06:19] LABS: BASOPHILS % 0.1 % (0.0-2.0); EOSINOPHILS % 1.8 % (0.0-5.0); HEMATOCRIT. 27.2 % (36.0-48.0); HEMOGLOBIN. 8.8 g/dL (12.0-16.0); LYMPHOCYTES % 9.9 % (20.0-50.0); MEAN CORPUSCULAR HEMOGLOBIN 28.3 pg (28.0-32.0); MEAN CORPUSCULAR VOLUME 87.6 fL (81.0-99.0); MONOCYTES % 6.4 % (2.0-8.0); NEUTROPHILS % 81.8 % (40.0-76.0); PLATELET 173 x1000/uL (130-400); RED CELL DISTRIBUTION WIDTH 15.3 % (11.6-14.6)
[2018-07-19] MEDS: BLOOD SUGAR DIAGNOSTIC STRIP TEST SCH ×5 (06:44→23:31)
[2018-07-19] MEDS: HYDRALAZINE HCL 50MG TABLET NG SCH ×3 (07:02→21:09)
[2018-07-19] MEDS: PANTOPRAZOLE SODIUM 40 MG/VIAL IV SCH (09:00)
[2018-07-19] MEDS: AMLODIPINE 5MG TABLET PO SCH ×2 (09:00→21:09)
[2018-07-19] MEDS: AMIODARONE HCL 200 MG TABLET PO SCH (09:00)
[2018-07-19] MEDS: LEVETIRACETAM 500MG/5ML CUP PO SCH ×2 (09:59→21:10)
[2018-07-19] MEDS: METOPROLOL TARTRATE 25MG TABLET PO SCH ×2 (10:00→21:09)
[2018-07-19] MEDS: INSULIN GLARGINE UD 100 UNITS/ML SYR SUBCUT SCH (10:59)
[2018-07-20] VITALS (13 sets, daily range): BP systolic 112–130; BP diastolic 60–72
[2018-07-20] MEDS: HYDRALAZINE HCL 50MG TABLET NG SCH ×3 (05:20→21:03)
[2018-07-20] MEDS: BLOOD SUGAR DIAGNOSTIC STRIP TEST SCH ×4 (05:20→23:42)
[2018-07-20] MEDS: INSULIN LISPRO 100 UNITS/ML SUBCUT SCH ×4 (05:21→23:45)
[2018-07-20] MEDS: LEVETIRACETAM 500MG/5ML CUP PO SCH ×2 (09:46→21:02)
[2018-07-20] MEDS: PANTOPRAZOLE SODIUM 40 MG/VIAL IV SCH (09:46)
[2018-07-20] MEDS: AMLODIPINE 5MG TABLET PO SCH ×2 (09:47→21:03)
[2018-07-20] MEDS: METOPROLOL TARTRATE 25MG TABLET PO SCH ×2 (09:47→21:03)
[2018-07-20] MEDS: AMIODARONE HCL 200 MG TABLET PO SCH (09:53)
[2018-07-20] MEDS ORDERED: INSULIN GLARGINE UD 100 UNITS/ML SYR SUBCUT SCH ×2 (10:00→11:00)
[2018-07-20] MEDS ORDERED: ASCORBIC ACID 500MG/5ML 120ML PO SCH (13:30)
[2018-07-20] MEDS: ASCORBIC ACID 500 MG TABLET PO SCH (14:08)
[2018-07-20] MEDS: ZINC SULFATE 220 MG ( 50 ) CAPSULE PO SCH (14:08)
[2018-07-21] VITALS (12 sets, daily range): BP systolic 98–136; BP diastolic 51–75
[2018-07-21] MEDS: HYDRALAZINE HCL 50MG TABLET NG SCH ×3 (05:08→21:06)
[2018-07-21] MEDS: BLOOD SUGAR DIAGNOSTIC STRIP TEST SCH ×4 (05:13→23:52)
[2018-07-21] MEDS: INSULIN LISPRO 100 UNITS/ML SUBCUT SCH ×4 (05:14→23:55)
[2018-07-21 06:27] LABS: BASOPHILS % 0.4 % (0.0-2.0); EOSINOPHILS % 1.7 % (0.0-5.0); HEMATOCRIT. 26.2 % (36.0-48.0); HEMOGLOBIN. 8.6 g/dL (12.0-16.0); LYMPHOCYTES % 10.7 % (20.0-50.0); MEAN CORPUSCULAR HEMOGLOBIN 28.8 pg (28.0-32.0); MEAN CORPUSCULAR VOLUME 87.2 fL (81.0-99.0); MEAN PLATELET VOLUME 10.3 fl (7.4-10.4); NEUTROPHILS % 80.2 % (40.0-76.0); PLATELET 184 x1000/uL (130-400)
[2018-07-21 06:53] LABS: CHLORIDE 101 mEq/L (98-107)
[2018-07-21] MEDS: ZINC SULFATE 220 MG ( 50 ) CAPSULE PO SCH (09:27)
[2018-07-21] MEDS: PANTOPRAZOLE SODIUM 40 MG/VIAL IV SCH (09:27)
[2018-07-21] MEDS: ASCORBIC ACID 500 MG TABLET PO SCH (09:27)
[2018-07-21] MEDS: LEVETIRACETAM 500MG/5ML CUP PO SCH ×2 (09:27→21:02)
[2018-07-21] MEDS: METOPROLOL TARTRATE 25MG TABLET PO SCH ×2 (09:28→21:03)
[2018-07-21] MEDS: AMLODIPINE 5MG TABLET PO SCH ×2 (09:28→21:02)
[2018-07-21] MEDS: ACETAMINOPHEN 650MG/20.3ML UDC PO PRN (09:29)
[2018-07-21] MEDS: AMIODARONE HCL 200 MG TABLET PO SCH (09:30)
[2018-07-21] MEDS ORDERED: INSULIN GLARGINE UD 100 UNITS/ML SYR SUBCUT SCH (10:00)
[2018-07-21] MEDS: INSULIN GLARGINE UD 100 UNITS/ML SYR SUBCUT SCH (10:28)
[2018-07-22] VITALS (12 sets, daily range): BP systolic 108–140; BP diastolic 57–84
[2018-07-22] MEDS: BLOOD SUGAR DIAGNOSTIC STRIP TEST SCH ×3 (06:02→18:11)
[2018-07-22] MEDS: HYDRALAZINE HCL 50MG TABLET NG SCH ×3 (06:02→21:17)
[2018-07-22] MEDS: INSULIN LISPRO 100 UNITS/ML SUBCUT SCH ×3 (06:04→18:00)
[2018-07-22] MEDS: ASCORBIC ACID 500 MG TABLET PO SCH (09:40)
[2018-07-22] MEDS: ZINC SULFATE 220 MG ( 50 ) CAPSULE PO SCH (09:40)
[2018-07-22] MEDS: METOPROLOL TARTRATE 25MG TABLET PO SCH ×2 (09:41→21:15)
[2018-07-22] MEDS: AMIODARONE HCL 200 MG TABLET PO SCH (09:42)
[2018-07-22] MEDS: LEVETIRACETAM 500MG/5ML CUP PO SCH ×2 (09:42→21:14)
[2018-07-22] MEDS: AMLODIPINE 5MG TABLET PO SCH ×2 (09:42→21:16)
[2018-07-22] MEDS: PANTOPRAZOLE SODIUM 40 MG/VIAL IV SCH (09:42)
[2018-07-22] MEDS: INSULIN GLARGINE UD 100 UNITS/ML SYR SUBCUT SCH (09:43)
[2018-07-23] VITALS (10 sets, daily range): BP systolic 91–138; BP diastolic 58–72
[2018-07-23] MEDS: BLOOD SUGAR DIAGNOSTIC STRIP TEST SCH ×4 (00:45→18:08)
[2018-07-23] MEDS: INSULIN LISPRO 100 UNITS/ML SUBCUT SCH ×4 (00:49→18:26)
[2018-07-23] MEDS: HYDRALAZINE HCL 50MG TABLET NG SCH ×3 (06:21→21:30)
[2018-07-23] MEDS ORDERED: SODIUM CHLORIDE 0.9% 1000ML BAG (SEPSIS BOLUS) IV ONE (08:30)
[2018-07-23] MEDS: LEVETIRACETAM 500MG/5ML CUP PO SCH ×2 (08:33→21:29)
[2018-07-23] MEDS: PANTOPRAZOLE SODIUM 40 MG/VIAL IV SCH (08:33)
[2018-07-23] MEDS: ZINC SULFATE 220 MG ( 50 ) CAPSULE PO SCH (08:34)
[2018-07-23] MEDS: ASCORBIC ACID 500 MG TABLET PO SCH (08:35)
[2018-07-23] MEDS: AMIODARONE HCL 200 MG TABLET PO SCH (08:35)
[2018-07-23] MEDS: METOPROLOL TARTRATE 25MG TABLET PO SCH ×2 (08:49→21:30)
[2018-07-23] MEDS: AMLODIPINE 5MG TABLET PO SCH ×2 (08:49→21:30)
[2018-07-23] MEDS ORDERED: AMIODARONE HCL 900 MG in DEXT 5% WATER 482 ML IV SCH (10:00)
[2018-07-23 10:14] LABS: BASOPHILS % 0.5 % (0.0-2.0); EOSINOPHILS % 2.1 % (0.0-5.0); HEMATOCRIT. 28.3 % (36.0-48.0); HEMOGLOBIN. 9.3 g/dL (12.0-16.0); LYMPHOCYTES % 12.9 % (20.0-50.0); MEAN CORPUSCULAR HEMOGLOBIN 28.9 pg (28.0-32.0); MONOCYTES % 7.3 % (2.0-8.0); NEUTROPHILS % 77.2 % (40.0-76.0); PLATELET 183 x1000/uL (130-400); RED BLOOD CELL COUNT 3.21 mill/uL (4.2-5.4); RED CELL DISTRIBUTION WIDTH 14.9 % (11.6-14.6)
[2018-07-23 11:11] LABS: CHLORIDE 103 mEq/L (98-107)
[2018-07-23] MEDS: INSULIN GLARGINE UD 100 UNITS/ML SYR SUBCUT SCH (12:09)
[2018-07-24] VITALS (12 sets, daily range): BP systolic 105–116; BP diastolic 57–69
[2018-07-24] MEDS: INSULIN LISPRO 100 UNITS/ML SUBCUT SCH ×5 (00:29→23:49)
[2018-07-24] MEDS: BLOOD SUGAR DIAGNOSTIC STRIP TEST SCH ×5 (00:29→23:49)
[2018-07-24] MEDS: HYDRALAZINE HCL 50MG TABLET NG SCH ×3 (05:40→21:29)
[2018-07-24 05:59] LABS: BASOPHILS % 0.6 % (0.0-2.0); EOSINOPHILS % 1.8 % (0.0-5.0); HEMATOCRIT. 27.7 % (36.0-48.0); HEMOGLOBIN. 9.2 g/dL (12.0-16.0); LYMPHOCYTES % 10.6 % (20.0-50.0); MEAN CORPUSCULAR HEMOGLOBIN 29.3 pg (28.0-32.0); MEAN CORPUSCULAR VOLUME 87.9 fL (81.0-99.0); MEAN PLATELET VOLUME 10.4 fl (7.4-10.4); MONOCYTES % 5.9 % (2.0-8.0); NEUTROPHILS % 81.1 % (40.0-76.0); PLATELET 168 x1000/uL (130-400); RED BLOOD CELL COUNT 3.15 mill/uL (4.2-5.4); RED CELL DISTRIBUTION WIDTH 15.1 % (11.6-14.6)
[2018-07-24 06:17] LABS: CHLORIDE 104 mEq/L (98-107)
[2018-07-24] MEDS: METOPROLOL TARTRATE 25MG TABLET PO SCH ×2 (08:03→21:00)
[2018-07-24] MEDS: LEVETIRACETAM 500MG/5ML CUP PO SCH ×2 (08:03→21:28)
[2018-07-24] MEDS: PANTOPRAZOLE SODIUM 40 MG/VIAL IV SCH (08:03)
[2018-07-24] MEDS: AMLODIPINE 5MG TABLET PO SCH ×2 (08:03→21:00)
[2018-07-24] MEDS: ZINC SULFATE 220 MG ( 50 ) CAPSULE PO SCH (08:03)
[2018-07-24] MEDS: ASCORBIC ACID 500 MG TABLET PO SCH (08:03)
[2018-07-24] MEDS: AMIODARONE HCL 200 MG TABLET PO SCH (08:05)
[2018-07-24] MEDS: INSULIN GLARGINE UD 100 UNITS/ML SYR SUBCUT SCH (12:02)
[2018-07-25] VITALS (18 sets, daily range): BP systolic 94–120; BP diastolic 53–66
[2018-07-25] MEDS: BLOOD SUGAR DIAGNOSTIC STRIP TEST SCH ×4 (05:12→23:41)
[2018-07-25] MEDS: HYDRALAZINE HCL 50MG TABLET NG SCH ×3 (05:12→21:59)
[2018-07-25] MEDS: INSULIN LISPRO 100 UNITS/ML SUBCUT SCH ×4 (05:26→23:44)
[2018-07-25] MEDS: AMIODARONE HCL 200 MG TABLET PO SCH (09:00)
[2018-07-25] MEDS: METOPROLOL TARTRATE 25MG TABLET PO SCH ×2 (09:00→21:00)
[2018-07-25] MEDS: INSULIN GLARGINE UD 100 UNITS/ML SYR SUBCUT SCH (10:00)
[2018-07-25] MEDS: LEVETIRACETAM 500MG/5ML CUP PO SCH ×2 (10:06→22:08)
[2018-07-25] MEDS: PANTOPRAZOLE SODIUM 40 MG/VIAL IV SCH (10:07)
[2018-07-25] MEDS: ASCORBIC ACID 500 MG TABLET PO SCH (10:07)
[2018-07-25] MEDS: ZINC SULFATE 220 MG ( 50 ) CAPSULE PO SCH (10:07)
[2018-07-25] MEDS: AMLODIPINE 5MG TABLET PO SCH ×2 (10:08→21:00)
[2018-07-26] VITALS (11 sets, daily range): BP systolic 106–122; BP diastolic 60–71
[2018-07-26] MEDS: INSULIN LISPRO 100 UNITS/ML SUBCUT SCH ×3 (05:26→17:06)
[2018-07-26] MEDS: BLOOD SUGAR DIAGNOSTIC STRIP TEST SCH ×3 (05:26→17:06)
[2018-07-26] MEDS: HYDRALAZINE HCL 50MG TABLET NG SCH ×3 (05:28→22:00)
[2018-07-26 06:05] LABS: BASOPHILS % 0.8 % (0.0-2.0); EOSINOPHILS % 2.7 % (0.0-5.0); HEMATOCRIT. 25.4 % (36.0-48.0); HEMOGLOBIN. 8.3 g/dL (12.0-16.0); LYMPHOCYTES % 11.9 % (20.0-50.0); MEAN CORPUSCULAR HEMOGLOBIN 28.9 pg (28.0-32.0); MEAN CORPUSCULAR VOLUME 87.9 fL (81.0-99.0); MEAN PLATELET VOLUME 9.9 fl (7.4-10.4); MONOCYTES % 6.7 % (2.0-8.0); NEUTROPHILS % 77.9 % (40.0-76.0); PLATELET 169 x1000/uL (130-400); RED BLOOD CELL COUNT 2.89 mill/uL (4.2-5.4); RED CELL DISTRIBUTION WIDTH 14.7 % (11.6-14.6)
[2018-07-26 06:28] LABS: CHLORIDE 105 mEq/L (98-107)
[2018-07-26] MEDS: PANTOPRAZOLE SODIUM 40 MG/VIAL IV SCH (08:50)
[2018-07-26] MEDS: ASCORBIC ACID 500 MG TABLET PO SCH (08:51)
[2018-07-26] MEDS: ZINC SULFATE 220 MG ( 50 ) CAPSULE PO SCH (08:51)
[2018-07-26] MEDS: AMLODIPINE 5MG TABLET PO SCH ×2 (08:51→21:20)
[2018-07-26] MEDS: METOPROLOL TARTRATE 25MG TABLET PO SCH ×2 (08:51→21:20)
[2018-07-26] MEDS: LEVETIRACETAM 500MG/5ML CUP PO SCH ×2 (08:51→21:19)
[2018-07-26] MEDS: AMIODARONE HCL 200 MG TABLET PO SCH (08:54)
[2018-07-26] MEDS: INSULIN GLARGINE UD 100 UNITS/ML SYR SUBCUT SCH (11:00)
[2018-07-26 11:10] LABS: HEMATOCRIT 25.9 % (36.0-48.0); HEMOGLOBIN 8.6 g/dL (12.0-16.0)
[2018-07-27] VITALS (12 sets, daily range): BP systolic 101–126; BP diastolic 63–80
[2018-07-27] MEDS: INSULIN LISPRO 100 UNITS/ML SUBCUT SCH ×3 (00:08→11:59)
[2018-07-27] MEDS: BLOOD SUGAR DIAGNOSTIC STRIP TEST SCH ×3 (00:08→11:26)
[2018-07-27] MEDS: HYDRALAZINE HCL 50MG TABLET NG SCH ×2 (05:51→14:00)
[2018-07-27] MEDS: PANTOPRAZOLE SODIUM 40 MG/VIAL IV SCH (07:54)
[2018-07-27] MEDS: ZINC SULFATE 220 MG ( 50 ) CAPSULE PO SCH (07:54)
[2018-07-27] MEDS: ASCORBIC ACID 500 MG TABLET PO SCH (07:54)
[2018-07-27] MEDS: LEVETIRACETAM 500MG/5ML CUP PO SCH ×2 (07:54→21:00)
[2018-07-27] MEDS: AMIODARONE HCL 200 MG TABLET PO SCH (07:55)
[2018-07-27] MEDS: METOPROLOL TARTRATE 25MG TABLET PO SCH (07:55)
[2018-07-27 08:00] LABS: BASOPHILS % 0.6 % (0.0-2.0); EOSINOPHILS % 2.7 % (0.0-5.0); HEMATOCRIT. 28.2 % (36.0-48.0); HEMOGLOBIN. 9.3 g/dL (12.0-16.0); LYMPHOCYTES % 18.3 % (20.0-50.0); MEAN CORPUSCULAR HEMOGLOBIN 28.8 pg (28.0-32.0); MEAN CORPUSCULAR VOLUME 87.5 fL (81.0-99.0); MEAN PLATELET VOLUME 9.6 fl (7.4-10.4); MONOCYTES % 7.1 % (2.0-8.0); NEUTROPHILS % 71.3 % (40.0-76.0); PLATELET 176 x1000/uL (130-400); RED BLOOD CELL COUNT 3.22 mill/uL (4.2-5.4)
[2018-07-27] MEDS: AMLODIPINE 5MG TABLET PO SCH (08:25)
[2018-07-27 08:43] LABS: CHLORIDE 103 mEq/L (98-107)
[2018-07-27] MEDS: INSULIN GLARGINE UD 100 UNITS/ML SYR SUBCUT SCH (11:02)
[2018-07-28] VITALS (12 sets, daily range): BP systolic 102–136; BP diastolic 56–81
[2018-07-28] MEDS: METOPROLOL TARTRATE 25MG TABLET PO SCH ×3 (00:02→20:30)
[2018-07-28] MEDS: AMLODIPINE 5MG TABLET PO SCH ×3 (00:02→20:30)
[2018-07-28] MEDS: HYDRALAZINE HCL 50MG TABLET NG SCH ×3 (00:03→13:56)
[2018-07-28] MEDS: BLOOD SUGAR DIAGNOSTIC STRIP TEST SCH ×4 (00:25→18:00)
[2018-07-28] MEDS: INSULIN LISPRO 100 UNITS/ML SUBCUT SCH ×4 (00:28→18:00)
[2018-07-28 07:03] LABS: BASOPHILS % 0.5 % (0.0-2.0); EOSINOPHILS % 2.5 % (0.0-5.0); HEMATOCRIT. 25.5 % (36.0-48.0); HEMOGLOBIN. 8.5 g/dL (12.0-16.0); LYMPHOCYTES % 15.6 % (20.0-50.0); MEAN CORPUSCULAR VOLUME 87.4 fL (81.0-99.0); MEAN PLATELET VOLUME 9.3 fl (7.4-10.4); MONOCYTES % 7.2 % (2.0-8.0); NEUTROPHILS % 74.2 % (40.0-76.0); PLATELET 189 x1000/uL (130-400); RED BLOOD CELL COUNT 2.92 mill/uL (4.2-5.4)
[2018-07-28 07:25] LABS: CHLORIDE 101 mEq/L (98-107)
[2018-07-28] MEDS: ZINC SULFATE 220 MG ( 50 ) CAPSULE PO SCH (09:34)
[2018-07-28] MEDS: ASCORBIC ACID 500 MG TABLET PO SCH (09:34)
[2018-07-28] MEDS: PANTOPRAZOLE SODIUM 40 MG/VIAL IV SCH (09:34)
[2018-07-28] MEDS: AMIODARONE HCL 200 MG TABLET PO SCH (09:40)
[2018-07-28] MEDS: INSULIN GLARGINE UD 100 UNITS/ML SYR SUBCUT SCH (09:41)
[2018-07-28] MEDS: LEVETIRACETAM 500MG/5ML CUP PO SCH ×2 (11:52→20:30)
== END 2018-07-28 22:22 | DRG 3 ==
LOC: ER 18:37 → EDBEDREQ 19:41 → ENRESERV 20:27 → MICUSO 20:41 → EDBEDREQTM 20:43 → EDBEDREQ 20:43 → MICUSO 07-08 07:37 → 5EST 07-18 11:25
PROVIDERS: ADMIT Internal Medicine Nephrology; ATTEND Internal Medicine Nephrology
PROC: 0BH18EZ Insertion of Endotracheal Airway into Trachea, Via Natural or Artificial Opening Endoscopic (ICD-10-PCS; 2018-07-05)
PROC: 0NU007Z Supplement Skull with Autologous Tissue Substitute, Open Approach (ICD-10-PCS; 2018-07-05)
PROC: 00H002Z Insertion of Monitoring Device into Brain, Open Approach (ICD-10-PCS; 2018-07-05)
PROC: 00U207Z Supplement Dura Mater with Autologous Tissue Substitute, Open Approach (ICD-10-PCS; 2018-07-05)
PROC: 00C40ZZ Extirpation of Matter from Intracranial Subdural Space, Open Approach (ICD-10-PCS; 2018-07-05)
PROC: 4A103BD Monitoring of Intracranial Pressure, Percutaneous Approach (ICD-10-PCS; 2018-07-05)
PROC: 0CJS8ZZ Inspection of Larynx, Via Natural or Artificial Opening Endoscopic (ICD-10-PCS; 2018-07-05)
PROC: 5A1955Z Respiratory Ventilation, Greater than 96 Consecutive Hours (ICD-10-PCS; principal; 2018-07-05 22:00)
PROC: 30233L1 Transfusion of Nonautologous Fresh Plasma into Peripheral Vein, Percutaneous Approach (ICD-10-PCS; 2018-07-06)
PROC: 30233N1 Transfusion of Nonautologous Red Blood Cells into Peripheral Vein, Percutaneous Approach (ICD-10-PCS; 2018-07-06)
PROC: 30233M1 Transfusion of Nonautologous Plasma Cryoprecipitate into Peripheral Vein, Percutaneous Approach (ICD-10-PCS; 2018-07-06)
PROC: 30233K1 Transfusion of Nonautologous Frozen Plasma into Peripheral Vein, Percutaneous Approach (ICD-10-PCS; 2018-07-06)
PROC: 00C40ZZ Extirpation of Matter from Intracranial Subdural Space, Open Approach (ICD-10-PCS; 2018-07-07)
PROC: 00H002Z Insertion of Monitoring Device into Brain, Open Approach (ICD-10-PCS; 2018-07-07)
PROC: 0NU007Z Supplement Skull with Autologous Tissue Substitute, Open Approach (ICD-10-PCS; 2018-07-07)
PROC: 00U207Z Supplement Dura Mater with Autologous Tissue Substitute, Open Approach (ICD-10-PCS; 2018-07-07)
PROC: 4A103BD Monitoring of Intracranial Pressure, Percutaneous Approach (ICD-10-PCS; 2018-07-07)
PROC: 30233R1 Transfusion of Nonautologous Platelets into Peripheral Vein, Percutaneous Approach (ICD-10-PCS; 2018-07-07)
PROC: 0B110F4 Bypass Trachea to Cutaneous with Tracheostomy Device, Open Approach (ICD-10-PCS; 2018-07-11)
PROC: 0GBJ0ZZ Excision of Thyroid Gland Isthmus, Open Approach (ICD-10-PCS; 2018-07-11)
PROC: 0DH63UZ Insertion of Feeding Device into Stomach, Percutaneous Approach (ICD-10-PCS; 2018-07-13)
PROC: 05HY33Z Insertion of Infusion Device into Upper Vein, Percutaneous Approach (ICD-10-PCS; 2018-07-23)
PROC: B54MZZA Ultrasonography of Right Upper Extremity Veins, Guidance (ICD-10-PCS; 2018-07-23)
DX: A41.9 Sepsis, unspecified organism (principal); S06.5X9A Traumatic subdural hemorrhage with loss of consciousness of unspecified duration, initial encounter; J96.20 Acute and chronic respiratory failure, unspecified whether with hypoxia or hypercapnia; J69.0 Pneumonitis due to inhalation of food and vomit; G93.40 Encephalopathy, unspecified; D68.59 Other primary thrombophilia; E46 Unspecified protein-calorie malnutrition; E87.0 Hyperosmolality and hypernatremia; J98.11 Atelectasis; Z99.11 Dependence on respirator [ventilator] status; N17.9 Acute kidney failure, unspecified; E11.65 Type 2 diabetes mellitus with hyperglycemia; I48.2 Chronic atrial fibrillation; D64.9 Anemia, unspecified; E66.01 Morbid (severe) obesity due to excess calories; H57.04 Mydriasis; E78.5 Hyperlipidemia, unspecified; I11.0 Hypertensive heart disease with heart failure; I50.9 Heart failure, unspecified; H26.9 Unspecified cataract; K29.70 Gastritis, unspecified, without bleeding; W18.39XA Other fall on same level, initial encounter; K59.00 Constipation, unspecified; M19.90 Unspecified osteoarthritis, unspecified site; N28.9 Disorder of kidney and ureter, unspecified; R13.12 Dysphagia, oropharyngeal phase; T38.0X5A Adverse effect of glucocorticoids and synthetic analogues, initial encounter; Z79.01 Long term (current) use of anticoagulants; Z79.84 Long term (current) use of oral hypoglycemic drugs; Z79.899 Other long term (current) drug therapy; Z87.442 Personal history of urinary calculi; Z91.81 History of falling; Z99.81 Dependence on supplemental oxygen; Z68.36 Body mass index [BMI] 36.0-36.9, adult; Z88.0 Allergy status to penicillin; Z88.5 Allergy status to narcotic agent; Z90.49 Acquired absence of other specified parts of digestive tract; Y92.89 Other specified places as the place of occurrence of the external cause; Y93.89 Activity, other specified; Y99.8 Other external cause status
CPT/HCPCS: 31500; 36415; 36569; 36600; 71045; 74018; 76705; 76937; 80048; 80061; 80076; 80202; 80305; 80307; 80329; 82140; 82375; 82550; 82553; 82805; 82962; 83036; 83605; 83735; 83880; 84100; 84134; 84439; 84443; 84478; 84481; 84484; 85014; 85018; 85027; 85379; 85384; 86850; 86900; 86920; 86927; 86945; 87070; 88304; 93005; 93306; 94002; 94003; 94640; 96374; 96375; 99291; A6261; C1713; C1725; C1769; C9113; C9132; G0482; J0282; J0330; J1100; J1160; J1170; J1580; J1815; J1940; J1953; J2060; J2150; J2250; J2704; J3010; J3370; J3490; J7050; J7060; J7070; J7120; P9012; P9016; P9017; P9034